=== PATIENT | female | born 1970 | race American Indian/Alaskan Native ===

== ENCOUNTER 2016-09-26 11:49 | Emergency (ER) | payer OTHER ==
[~2016-09-26 11:49] MED LIST: ADRENALIN ONE; CORDARONE IV ONE; SODIUM BICARBONATE IV ONE
[2016-09-26] MEDS ORDERED: ACTIVASE ONE ×2 (11:59)
--- NOTE | 2016-09-26 12:03 | Emergency Department Report ---
ED CPR HPI - General Chief Complaint: Cardiac Arrest/CPR Stated Complaint: CARDIAC ARREST Time Seen by Provider: 09/26/16 12:03 Source: EMS (verbal report received from EMS.ems notes not available at time of chart dictation) - History of Present Illness Initial Comments: This is a 45-year-old female. She is previously unknown to me. She is brought to the hospital by EMS as an out of hospital cardiac arrest. As per verbal report from EMS, they received a call for chest pain. EMS reports that while they were transporting the patient, the patient stopped breathing, became asystolic. EMS reports intubating the patient in the field. She was also shocked, and given 2 rounds of epinephrine. Upon arrival, the patient was intubated, pulseless, with an initial rhythm of PEA Her pupils were fixed and dilated. EMS offered the history that patient had just been discharged from another hospital with a diagnosis of pulmonary embolus. Given that patient was just discharged with a known diagnosis of pulmonary embolus, I verbally ordered alteplase, 10 mg IV push, followed by 90 mg IV infusion. high quality CPR was continued, and the patient received standard medications as per ACLS protocol. Fingerstick was within normal limits. Patient developed V. fib, pulseless, was shocked, given amiodarone, standard ACLS interventions were undertaken. Unfortunately, return of spontaneous circulation could not be obtained. bedside ultrasounds demonstrated no coordinated ventricular activity. Given the prolonged downtime, fixed and dilated pupils, inability to obtain pulses, resuscitation efforts were terminated. Family members were informed. MD Complaint: collapsed during activity -: minute(s) Place: home Number of Shocks Delivered: 1 Initial Findings in the Field: no pulse, VTACH/VFIB, PEA ROSC in the Field: No Associated Injuries: No Associated Symptoms: chest pain, shortness of breath Treatments Prior to Arrival: chest compressions, defribrillated shocks #, epinephrine mgs # - Related Data Allergies Allergy/AdvReac Type Severity Reaction Status Date / Time lisinopril Allergy Unknown Verified 09/26/16 12:03 ED Review of Systems ROS: Stated complaint: CARDIAC ARREST Other details as noted in HPI Constitutional: see HPI Eyes: as per HPI ENT: as per HPI Respiratory: see HPI Cardiovascular: as per HPI Endocrine: see HPI Gastrointestinal: as per HPI Genitourinary: as per HPI Musculoskeletal: as per HPI Skin: as per HPI Neurological: as per HPI Psychiatric: as per HPI Hematological/Lymphatic: as per HPI ED Physical Exam - General Limitations: Altered Mental Status General appearance: other (intubated, GCS of 3) - Head Head exam: Present: atraumatic, normocephalic - Eye Eye exam: Present: other (pupils fixed and dilated, do not react to light) - ENT ENT exam: Present: other (endotracheal tube noted in the oropharynx) - Neck Neck exam: Present: normal inspection - Respiratory Respiratory exam: Present: other (course breath sounds when pde-ydlel-mosk ventilation is applied. Otherwise no breath sounds are auscultated. Patient pulseless) - Cardiovascular Cardiovascular Exam: Present: other (patient is pulseless) - GI/Abdominal GI/Abdominal exam: Present: soft - External exam: Present: normal external exam - Extremities Exam Extremities exam: Present: normal inspection - Back Exam Back exam: Present: normal inspection - Neurological Exam Neurological exam: Present: other (GCS of 3, nonverbal) - Psychiatric Psychiatric exam: Present: other (intubated) - Skin Skin exam: Present: dry ED Medical Decision Making - Lab Data Lab Results 09/26/16 Range/Units 11:53 POC Glucose 120 H (70-105) Critical care attestation.: If time is entered above; I have spent that time in minutes in the direct care of this critically ill patient, excluding procedure time. ED Disposition Clinical Impression: Cardiac arrest Disposition: Is pt being admited?: No Does the pt Need Aspirin: No Condition: Undetermined Referrals: PRIMARY CARE, [Primary Care Provider] - 3-5 Days
[2016-09-26] MEDS ORDERED: CATHFLO IV ONE ×2 (14:05→14:06)
== END 2016-09-26 15:40 ==
LOC: ED 11:49
DX: I46.9 Cardiac arrest, cause unspecified (principal); Z88.6 Allergy status to analgesic agent
CPT/HCPCS: 82962; 99285; J0171; J0282; J2997